=== PATIENT | male | born 1965 | race American Indian/Alaskan Native ===

== ENCOUNTER 2018-01-30 09:55 | Day surgery (SDC) | payer BC ==
[2018-01-30] MEDS ORDERED: XYLOCAINE MPF 2% ONE (10:00)
[2018-01-30] MEDS ORDERED: NACL 0.9% 1000 ML 1,000 ML IV SCH (11:00)
[2018-01-30] MEDS ORDERED: DIPRIVAN 10 MG/ML IV ONE ×3 (11:27→12:08)
--- NOTE | 2018-01-30 12:08 | Anesthesia Day of Surgery ---
Anesthesia Day of Surgery - Day of Surgery Patient Examined: Yes Patient H&P Reviewed: Yes Patient is NPO: Yes
--- NOTE | 2018-01-30 12:08 | Anesthesia Consultation ---
Anesthesia Consult and Med Hx Date of service: 01/30/18 - Airway Anesthetic Teeth Evaluation: Poor, Partials ROM Head & Neck: Adequate Mental/Hyoid Distance: Adequate Mallampati Class: Class II Intubation Access Assessment: Probably Good - Pulmonary Exam CTA: Yes - Cardiac Exam Cardiac Exam: RRR - Pre-Operative Health Status ASA Pre-Surgery Classification: ASA2 Proposed Anesthetic Plan: MAC - Pulmonary Hx Smoking: Yes - Cardiovascular System Hx Hypertension: Yes - Other Systems Hx Alcohol Use: Yes (12 PACK A WEEK X 20 YEARS)
--- NOTE | 2018-01-30 12:20 | Operative Report ---
Operative Report Operative Report: Date of procedure: 01/30/2018 Procedure: Colonoscopy with Snare polypectomy and submucosal injection Hot biopsy Polypectomy and Polyp ablation. Attending physician: Lucien Mtz M.D. Tanker Serviceman: Lucien Mtz M.D. Indication: Patient is a 52-year-old male who presents for screening colonoscopy. This colonoscopy serves to evaluate patient so that treatment may be directed based on the findings. Consent: Informed consent was obtained after advising the patient and family regarding nature of this procedure, its indications, potential benefits as well as possible complications including but not limited to bleeding perforation and adverse reaction to medication, infection as well as other cardiopulmonary complications. An informed written and verbal consent was then obtained after due opportunity was provided for questions and answers. Monitoring: Patient was monitored continuously with pulse oximetry and electrocardiographic recordings as well as blood pressure recordings. Vital signs remained stable throughout this procedure with no untoward events. Preoperative assessment: Patient was assessed immediately prior to this procedure for capacity to tolerate monitored anesthesia care and moderate sedation as well as general anesthesia. Patient's ASA classification is 2, Mallampati class is 2, Hyomental distance is 3. Instrument: [employer] Wireless video colonoscope Medications: Propofol given intravenously in divided doses. For details please refer to anesthesia records. Description of procedure: Patient was placed in the left lateral decubitus position after achieving sedation, a digital rectal examination was performed following which the colonoscope was introduced into the anal verge and advanced to the cecum which was identified by the cecal valve, the appendiceal orifice, as well as by the cecal strap and direct transillumination. The colonoscope was subsequently withdrawn with careful inspection of all mucosal surfaces. Patient tolerated this procedure well and was subsequently taken to the recovery room. The following findings were noted. Findings: Patient had a broad-based flat polyp seen in the rectum with adjoining diminutive polyps. This flat polyp was elevated with submucosal injection of saline and removed partially by snare electrocautery. The rest of it with removed by avulsion, using a hot biopsy forcep. The remaining diminutive polyps in the rectum were either ablated or removed by hot biopsy polypectomy. All polyp fragments were retrieved and sent for histopathology. Patient had multiple diverticula in all segments of the colon, excluding the rectum. Patient was noted to have internal hemorrhoids seen on the retroflexed view at the anal verge. Impression: Multiple rectal polyps status post snare polypectomy and submucosal injection, hot biopsy polypectomy and polyp ablation Diverticular disease of the colon Internal hemorrhoids. Plan: Follow pathology report. High-fiber diet. Repeat colonoscopy in 5 years, if polyp is adenomatous.
--- NOTE | 2018-01-30 12:32 | Discharge Summary ---
Short Stay Discharge Plan Activity: advance as tolerated Weight Bearing Status: Weight Bear as Tolerated Diet: regular Additional Instructions: Post Sedation D/C Instructions When you return home you may resume your regular diet unless otherwise directed. -Go directly home from the hospital and rest quietly. You may resume normal activities tomorrow. -Do NOT drive, return to work, operate any machinery or make any important personal or business decisions today. -Do NOT drink any alcohol or take nerve or sleeping drugs. They add to the effects of the medicine still present in your body. Follow up with Dr. Mtz in 2 weeks to obtain pathology results and treatment plan. Follow up with: PRIMARY CARE, [Primary Care Provider] - 7 Days
[2018-01-30 12:59] VITALS: BP 137/90
== END 2018-01-30 09:56 | disposition home or self-care (01) ==
LOC: GIO 09:55
PROVIDERS: ATTEND Internal Medicine Gastroenterology
DX: Z12.11 Encounter for screening for malignant neoplasm of colon (principal); K57.30 Diverticulosis of large intestine without perforation or abscess without bleeding; K62.1 Rectal polyp; K64.8 Other hemorrhoids; K62.89 Other specified diseases of anus and rectum; F17.210 Nicotine dependence, cigarettes, uncomplicated; I10 Essential (primary) hypertension; Z72.89 Other problems related to lifestyle; Z98.890 Other specified postprocedural states
CPT/HCPCS: 45381; 45384; 45385; 88305; J2704; J7030